=== PATIENT | female | born 1950 | race Caucasian/White ===

== ENCOUNTER 2024-11-10 06:10 | Emergency (ER) | payer MEDICARE ==
[~2024-11-10] VITALS: Ht 157.5 cm; Wt 75.0 kg
[2024-11-10 06:17] VITALS: TEMP 98.5
[2024-11-10] MEDS ORDERED: NITR0.4T50 SL (06:34)
[2024-11-10] MEDS ORDERED: METH1TAB66 PO (06:34)
[2024-11-10] MEDS ORDERED: ASPI-1522 PO (06:34)
[2024-11-10] MEDS ORDERED: ISOS60TA58 PO (06:34)
[2024-11-10] MEDS ORDERED: ACET-66 PO (06:34)
[2024-11-10] MEDS ORDERED: LISI-657 PO (06:34)
[2024-11-10] MEDS ORDERED: MIRA25TA PO (06:34)
[2024-11-10] MEDS ORDERED: CARV6.2534 PO (06:34)
[2024-11-10] MEDS ORDERED: METF-446 PO (06:34)
[2024-11-10 06:55] LABS: BASOPHILS % (AUTO) 0.5 % (0.0-2.0); EOSINOPHILS % (AUTO) 5.4 % (1.0-6.0); HEMATOCRIT 33.5 % (36-46); HEMOGLOBIN 10.6 g/dL (12.0-16.0); LYMPHOCYTES # (AUTO) 2.3 K/uL (1.0-4.8); LYMPHOCYTES % (AUTO) 20.7 % (22.0-44.0); MEAN CORPUSCULAR HGB CONC 31.7 G/dL (31.0-37.0); MEAN CORPUSCULAR VOLUME 82 fL (80-100); MONOCYTES # (AUTO) 0.9 K/uL (0.1-1.0); MONOCYTES % (AUTO) 7.8 % (2.0-9.0); NEUTROPHILS # (AUTO) 7.3 K/uL (1.8-7.7); NEUTROPHILS % (AUTO) 65.6 % (40.0-70.0); PLATELET COUNT (AUTO) 271 K/uL (150-450); RED BLOOD CELL COUNT(AUTO) 4.08 MIL/uL (4.00-5.20); RED CELL DISTRIBUTION WIDTH 16.5 % (11.5-14.5); WHITE BLOOD COUNT (AUTO) 11.2 K/uL (4.5-11.0)
[2024-11-10 06:58] LABS: APPEARANCE,URINE CLEAR (CLEAR); BILIRUBIN,URINE NEGATIVE (NEGATIVE); COLOR,URINE COLORLESS (YELLOW); GLUCOSE, URINE (UA) NEGATIVE (NEGATIVE); KETONES,URINE NEGATIVE (NEGATIVE); LEUKOCYTE ESTERASE ,URINE SMALL (NEGATIVE); NITRATE,URINE NEGATIVE (NEGATIVE); OCCULT BLOOD,URINE NEGATIVE (NEGATIVE); PROTEIN,URINE NEGATIVE (NEGATIVE); SPECIFIC GRAVITIY, URINE 1.012 (1.003-1.030); UROBILINOGEN,URINE <=1.0 mg/dL (<=1.0)
[2024-11-10 07:02] LABS: CALCIUM, TOTAL 8.9 mg/dL (8.8-10.5); POTASSIUM 5.2 mmol/L (3.5-5.1)
[2024-11-10 07:06] LABS: ALBUMIN 3.6 g/dL (3.4-5.0); BILIRUBIN,DIRECT 0.1 mg/dL (0.00-0.20); BILIRUBIN,TOTAL 0.3 mg/dL (0.1-1.0); TOTAL PROTEIN, SERUM 7.3 g/dL (6.4-8.2)
[2024-11-10 07:17] LABS: BACTERIA,URINE Few /HPF (None Seen); RBC,URINE None Seen /HPF (0-2)
[2024-11-10 07:18] LABS: SQUAMOUS EPITHELIAL CELL,UR Moderate /LPF (None Seen)
[2024-11-10] MEDS: SODIUM CHLORIDE 0.9% 1,000 ML IV ONE (07:28)
[2024-11-10 07:31] LABS: COVID AG,FIA SOURCE NASAL SWAB
[2024-11-10] MEDS ORDERED: IOHEXOL 350 MG/ML 100 ML VIAL ONE (07:31)
[2024-11-10] MEDS ORDERED: SODIUM CHLORIDE 0.9% 100 ML ONE (07:31)
[2024-11-10 07:53] LABS: INFLUENZA TYPE A NEGATIVE FOR TYPE A (NEGATIVE); INFLUENZA TYPE B NEGATIVE FOR TYPE B (NEGATIVE); SARS-COV2 (COVID) ANTIGEN,FIA Negative (Negative)
[2024-11-10 09:19] LABS: ANION GAP 3 mmol/L (8-16); CALCIUM, TOTAL 7.9 mg/dL (8.8-10.5); CARBON DIOXIDE 27 mmol/L (22-29); CHLORIDE 110 mmol/L (98-107); GLOMERULAR FILTR. RATE CALC > 60 mL/min (>60); GLUCOSE,RANDOM 79 mg/dL (70-110); SODIUM SERUM 140 mmol/L (136-145); UREA NITROGEN, BLOOD 25 mg/dL (7-18)
[2024-11-10] MEDS ORDERED: AMOX-457 PO (09:26)
[2024-11-10 09:48] VITALS: BP 139/52; PULSE 68; RESP 18; O2SAT 96
[2024-11-10] MEDS: AMOX TR/POT CLAV 875 MG/125 MG TABLET PO ONE (10:19)
== END 2024-11-10 10:38 | disposition home or self-care (01) ==
LOC: EMS 06:14
DX: K52.9 Noninfective gastroenteritis and colitis, unspecified (principal); E87.5 Hyperkalemia; E11.9 Type 2 diabetes mellitus without complications; E86.0 Dehydration; I10 Essential (primary) hypertension; Z79.84 Long term (current) use of oral hypoglycemic drugs; Z90.49 Acquired absence of other specified parts of digestive tract; Z79.899 Other long term (current) drug therapy; Z20.822 Contact with and (suspected) exposure to COVID-19
CPT/HCPCS: 99285; 74177; 96360; 96361; 87426; 80048; 80076; 81001; 83690; 85025; 87804; 36415; 93005; Q9967; J7030; J7050